=== PATIENT | male | born 1985 | race African-American/Black ===

== ENCOUNTER 2019-01-11 17:01 | Emergency (ER) | payer OTHER, MEDICAID, SELFPAY ==
[2019-01-11 17:13] VITALS: BP 124/61; PULSE 107; RESP 19; TEMP 36.6; O2SAT 94; BMI 46.3
--- NOTE | 2019-01-11 17:18 | DI.RAD.S_ITS ---
PROCEDURE: XR CHEST 1V INDICATIONS: Chest pain TECHNIQUE: One view of the chest was acquired. COMPARISON: None. FINDINGS: Surgical changes and devices: None. Lungs and pleura: An incomplete inspiratory result is noted, causing a crowded appearance to the lung markings. No focal infiltrates are seen. No pneumothorax or significant pleural effusions are seen. Mediastinum: Mediastinal contours appear normal. Heart size is normal. Bones and chest wall: No suspicious bony lesions. Overlying soft tissues appear unremarkable. IMPRESSION: Portable chest within normal limits. Dictated by: Gregor Sharma M.D. on 01/11/2019 at 16:30 Approved by: Gregor Sharma M.D. on 01/11/2019 at 16:31
[2019-01-11 17:40] VITALS: BP 93/68; PULSE 97; RESP 19; O2SAT 99
[2019-01-11 17:51] LABS: Add Manual Diff / Slide Review NO; Basophils Absolute Auto 100 /uL (0-100); Basophils Percent Auto 0.9 % (0-2); Eosinophils Absolute Auto 300 /uL (0-450); Eosinophils Percent Auto 2.7 % (2-4); Hematocrit 43.2 % (41-53); Hemoglobin 13.9 g/dL (13.5-17.5); Lymphocytes Absolute Auto 2100 /uL (1100-4500); Lymphocytes Percent Auto 19.4 % (25-40); Mean Corpuscular HGB Conc 32.2 % (30-36); Mean Corpuscular Hemoglobin 25.9 PG (26-34); Mean Corpuscular Volume 80.3 fL (80-100); Monocytes Absolute Auto 900 /uL (0-900); Monocytes Percent Auto 7.9 % (3-14); Neutrophils Absolute Auto 7600 /uL (1500-7000); Neutrophils Percent Auto 69.1 % (50-75); Platelet Count 319 X10^3/uL (150-400); Red Blood Cell Count 5.38 X10^6/uL (4.5-5.9); Red Cell Distribution Width 16.1 % (11.6-14.8)
[2019-01-11 17:55] LABS: Alanine Aminotransferase 28 IU/L (21-72); Albumin 4.1 g/dL (3.5-5.0); Albumin Globulin Ratio 1.1 (1.0-2.8); Alkaline Phosphatase 82 U/L (38-126); Aspartate Aminotransferase 23 IU/L (17-59); Bilirubin Total 0.5 mg/dL (0.2-1.3); Blood Urea Nitrogen 11 mg/dL (9-20); Calcium 9.4 mg/dL (8.4-10.2); Carbon Dioxide 26 mmol/L (22-32); Chloride 103 mmol/L (98-107); Creatine Kinase 103 U/L (55-170); Estimated Glomerular Filt Rate > 60.0 mL/min (>60); Globulin 3.7 g/dL (1.7-4.1); Glucose 100 mg/dL (70-100); HEMOLYSIS < 15 (0-50); Lipase 68 U/L (23-300); Potassium 3.6 mmol/L (3.4-5.1); Sodium 140 mmol/L (137-145); Total Protein 7.8 g/dL (6.3-8.2)
--- NOTE | 2019-01-11 18:05 | ED_ITS ---
HPI - Chest Pain General Chief Complaint: Chest Pain Stated Complaint: chest/abdominal pain Time Seen by Provider: 01/11/19 17:59 Source: patient Mode of arrival: ambulatory Limitations: no limitations History of Present Illness HPI narrative: Patient is a 33-year-old male here for evaluation of chest discomfort. Patient states that he has had the discomfort off and on for some time now. He states he thought that it was heartburn. He has seen another provider within the past couple days and was told that he probably had an ulcer. He was started on a medication after he described it does sound like Carafate. He states that he is feeling weak at work. No shortness of breath. No family history of early cardiac disease. Symptoms do seem to be associated with eating. He states that it is certain types of foods that make the symptoms worse. No blood in his stool. Not vomiting blood. Related Data Home Medications Medication Instructions Recorded Confirmed sucralfate 1 g PO QID 01/11/19 01/11/19 Previous Rx's Medication Instructions Recorded ranitidine HCl [Zantac] 150 mg PO BID #60 tab 01/11/19 Allergies Allergy/AdvReac Type Severity Reaction Status Date / Time No Known Drug Allergies Allergy Verified 01/11/19 17:17 Review of Systems Constitutional Denies fever(s) and Denies headache(s) ENT Ears, Nose, Mouth, and Throat: Denies headache(s) Cardiovascular Reports chest pain and Denies dyspnea Respiratory Denies dyspnea Gastrointestinal Gastrointestinal: Reports abdominal pain (Epigastric), Reports belching, Reports bloating, Denies change in stool character, Reports dyspepsia, Denies nausea and Denies vomiting Genitourinary Denies dysuria Musculoskeletal Denies myalgias and Denies arthralgias Integumentary/Breasts Denies rash Neurologic Denies headache(s) Hematologic/Lymphatic Denies easy bleeding and Denies easy bruising [facility] Medical History Patient denies medical problems (Acute) Social History Smoking Status: Never smoker Social History Smoking Status: Never smoker Exam Initial Vital Signs Initial Vital Signs: Vital Signs Temperature 97.9 F 01/11/19 17:13 Pulse Rate 107 H 01/11/19 17:13 Respiratory Rate 19 01/11/19 17:13 Blood Pressure 124/61 01/11/19 17:13 Pulse Oximetry 94 01/11/19 17:13 Const General: cooperative, healthy appearing, comfortable, well developed, well groomed and No acute distress Orientation: alert, awake and oriented x3 HENMT Head: normal to inspection and normocephalic Resp Effort & Inspection: normal respiratory effort Auscultation: clear to auscultation bilaterally Cardio Rate: regular rate Rhythm: regular rhythm GI Inspection: non-distended Palpation: soft, No firm and tender (Epigastric) Skin Lesions: no lesions Rashes: no rashes Neuro General: alert and awake Cognition: normal cognition Speech: speech normal Extrem General: normal to inspection and capillary refill normal Scores HEART Score Heart Score history: Slightly Suspicious Heart Score EKG: Non-Specific repolarization disturbance Heart Score Age: < 45 years old Heart Score risk factors: No known risk factors Heart Score troponin: < or = to normal limit Heart Score Total: 1 Course Orders Ordered: ED Orders 01/11/19 17:18 XR chest 1V Stat EKG-12 Lead Stat 01/11/19 17:28 Complete Blood Count AUTO DIFF Stat Comprehensive Metabolic Panel Stat Lipase Stat Troponin & CK Cardiac Panel Stat Vital Signs - 8 hr 01/11/19 17:13 01/11/19 17:40 Temperature 97.9 F Pulse Rate 107 H 97 H Respiratory Rate 19 19 Blood Pressure 124/61 Blood Pressure [Right Arm] 93/68 Pulse Oximetry 94 99 MDM - Chest Pain Lab Data Attestation: I reviewed the patient's lab results. Result diagrams: 01/11/19 17:28 01/11/19 17:28 Lab Results 01/11/19 01/11/19 Range/Units 17:28 17:28 WBC 11.0 (4.5-11.0) X10^3/uL RBC 5.38 (4.5-5.9) X10^6/uL Hgb 13.9 (13.5-17.5) g/dL Hct 43.2 (41-53) % MCV 80.3 (80-100) fL MCH 25.9 L (26-34) PG MCHC 32.2 (30-36) % RDW 16.1 H (11.6-14.8) % Plt Count 319 (150-400) X10^3/uL Neut % (Auto) 69.1 (50-75) % Lymph % (Auto) 19.4 L (25-40) % [place] % (Auto) 7.9 (3-14) % Eos % (Auto) 2.7 (2-4) % Baso % (Auto) 0.9 (0-2) % Neut # (Auto) 7600 H (8424-5196) /uL Lymph # (Auto) 2100 (3763-2066) /uL [place] # (Auto) 900 (0-900) /uL Eos # (Auto) 300 (0-450) /uL Baso # (Auto) 100 (0-100) /uL Sodium 140 (137-145) mmol/L Potassium 3.6 (3.4-5.1) mmol/L Chloride 103 (98-107) mmol/L Carbon Dioxide 26 (22-32) mmol/L BUN 11 (9-20) mg/dL Creatinine 1.00 (0.66-1.25) mg/dL Estimated GFR > 60.0 (>60) mL/min BUN/Creatinine Ratio 11.0 (6-22) Glucose 100 (70-100) mg/dL Calcium 9.4 (8.4-10.2) mg/dL Total Bilirubin 0.5 (0.2-1.3) mg/dL AST 23 (17-59) IU/L ALT 28 (21-72) IU/L Alkaline Phosphatase 82 (38-126) U/L Total Creatine Kinase 103 (55-170) U/L CK-MB (CK-2) 0.40 (<2.37) ng/mL CK-MB (CK-2) Rel Index 0.4 L (1.5-5.0) % Troponin I < 0.012 (0.01-0.034) ng/mL Total Protein 7.8 (6.3-8.2) g/dL Albumin 4.1 (3.5-5.0) g/dL Globulin 3.7 (1.7-4.1) g/dL Albumin/Globulin Ratio 1.1 (1.0-2.8) Lipase 68 (23-300) U/L Imaging Data Chest x-ray: Radiologist's impression: [address] [place] [address] XRay Report Signed Patient: Moody Moran CMR#: [id number] : 1985Acct:[id number] Age/Sex: te of Service: 01/11/19 Loc: ED Accession Number: [id number] Procedure: XR chest 1V Ordering Provider: Luz Elena Rich D.O. PROCEDURE: XR CHEST 1V INDICATIONS: Chest pain TECHNIQUE: One view of the chest was acquired. COMPARISON: None. FINDINGS: Surgical changes and devices: None. Lungs and pleura: An incomplete inspiratory result is noted, causing a crowded appearance to the lung markings. No focal infiltrates are seen. No pneumothorax or significant pleural effusions are seen. Mediastinum: Mediastinal contours appear normal. Heart size is normal. Bones and chest wall: No suspicious bony lesions. Overlying soft tissues appea r unremarkable. IMPRESSION: Portable chest within normal limits. Dictated by: Gregor Sharma M.D. on 01/11/2019 at 16:30 Approved by: Gregor Sharma M.D. on 01/11/2019 at 16:31 ECG Data Attestation: I personally reviewed and interpreted this ECG as follows: Prior ECG tracings: not available for review Interpretation: Sinus tachycardia Ventricular rate of 100 Normal axis Normal QRS Normal QTC Nonspecific ST T wave changes MDM Narrative Medical decision making narrative: Patient's history and physical exam is most consistent with reflux disease. He is currently on Carafate. We discussed the continued use of this. Will start him on Zantac. We did discuss coronary rupal ry disease however I feel that the patient is low risk for this given his history and physical. Patient is also low risk for pulmonary embolism. No indication for admission to the hospital. No indication for CT scan. Patient was given phone number to help with the staff showing a primary provider. We discussed diet modifications. He expressed understanding and agreement with plan. Discharge Plan Departure Patient Disposition: Home Clinical Impression: Atypical chest pain Gastroesophageal reflux disease Qualifiers: Esophagitis presence: esophagitis presence not specified Qualified Code(s): K21.9 - Gastro-esophageal reflux disease without esophagitis Discharge Date/Time: 01/11/19 18:56 Interventions: ED Discharge Assessment Last Done: 01/11/19 18:55 Instructions: DI for Gastroesophageal Reflux Disease (GERD), DI for Atypical Chest Pain Activity Restrictions/Additional Instructions: Recommend that you call [phone] to help establish a primary care provider. Recommend that you continue your current medication and start the new medication as directed. Return to the ER for any new or worsening symptoms. Prescriptions: New ranitidine HCl [Zantac] 150 mg tablet 150 mg PO BID Qty: 60 RF: 0 No Action sucralfate 1 gram tablet 1 g PO QID RF: 0 Stand Alone Forms: Work Release Note
[2019-01-11 18:07] LABS: Troponin I < 0.012 ng/mL (0.01-0.034)
[2019-01-11 18:11] LABS: CKMB % Relative Index 0.4 % (1.5-5.0)
[2019-01-11 18:24] VITALS: BP 115/67; PULSE 94; RESP 21; O2SAT 98
== END 2019-01-11 18:56 | disposition home or self-care (01) ==
PROVIDERS: Emergency Medicine; Emergency Provider Emergency Medicine
DX: R07.89 Other chest pain (principal); K21.9 Gastro-esophageal reflux disease without esophagitis; R00.0 Tachycardia, unspecified
CPT/HCPCS: 36591; 71045; 80053; 82550; 82553; 83690; 84484; 85025; 93005; 99283; 99285

== ENCOUNTER 2019-02-01 07:28 | Emergency (ER) | payer OTHER, MEDICAID, SELFPAY ==
--- NOTE | 2019-02-01 07:33 | DI.RAD.S_ITS ---
PROCEDURE: XR CHEST 1V INDICATIONS: Chest pain TECHNIQUE: One view of the chest was acquired. COMPARISON: [facility], CR, XR CHEST 1V, 01/11/2019, 17:25. FINDINGS: Surgical changes and devices: None. Lungs and pleura: Lungs are clear. No pleural effusions or pneumothorax. Mediastinum: Mediastinal contours appear normal. Heart size is normal. Bones and chest wall: No suspicious bony lesions. Overlying soft tissues appear unremarkable. IMPRESSION: Stable chest. No acute cardiopulmonary process is evident. Dictated by: Osmar Andrade M.D. on 02/01/2019 at 8:13 Approved by: Osmar Andrade M.D. on 02/01/2019 at 8:13
[2019-02-01 07:37] VITALS: BP 127/62; PULSE 69; RESP 18; TEMP 36.8; O2SAT 100; BMI 43.6
--- NOTE | 2019-02-01 07:57 | ED.CHESTPAIN ---
HPI - Chest Pain <DO Christopher Jones Last Filed: 02/07/19 07:05> General Chief Complaint: Chest Pain Stated Complaint: chest pain Time Seen by Provider: 02/01/19 07:32 Source: patient Mode of arrival: ambulatory Limitations: no limitations History of Present Illness HPI narrative: Patient is a 33-year-old male who I evaluated in this emergency department the past for chest pain. During his last visit where I evaluated him his symptoms seemed to be more GI related rather than cardiac. When I saw him last he had already been given a prescription for Carafate. I added a prescription of Zantac. He states since that time he has continued to have symptoms. He states that he has not been taking the Carafate because he had a ?reaction? to this medication where he was seen by another provider who told him to stop taking it. He states that he has been taking the Zantac which has improved the symptoms at night but he still continues to have epigastric and right upper quadrant pain. Describes no new symptoms compared with his last visit here in the emergency department. Related Data Home Medications Medication Instructions Recorded Confirmed sucralfate 1 g PO QID 01/11/19 01/11/19 Previous Rx's Medication Instructions Recorded ranitidine HCl [Zantac] 150 mg PO BID #60 tab 01/11/19 famotidine [Pepcid] 40 mg PO DAILY #30 tab 02/01/19 Allergies Allergy/AdvReac Type Severity Reaction Status Date / Time No Known Drug Allergies Allergy Verified 02/01/19 07:37 Review of Systems <DO Christopher Jones Last Filed: 02/07/19 07:05> Constitutional Denies fever(s) and Denies headache(s) ENT Ears, Nose, Mouth, and Throat: Denies headache(s) Cardiovascular Reports chest pain (Patient describes chest pain upon triage however is epigastric and RUQ), Denies irregular heart rhythm and Denies dyspnea Respiratory Denies cough and Denies dyspnea Gastrointestinal Gastrointestinal: Reports abdominal pain, Denies change in stool character, Denies nausea and Denies vomiting Musculoskeletal Denies myalgias and Denies arthralgias Integumentary/Breasts Denies rash Neurologic Denies headache(s) Hematologic/Lymphatic Denies easy bleeding and Denies easy bruising PFSH <DO Christopher Jones Last Filed: 02/07/19 07:05> Medical History Patient denies medical problems (Acute) Social History Smoking Status: Never smoker Social History Smoking Status: Never smoker Exam <DO Christopher Jones Last Filed: 02/07/19 07:05> Initial Vital Signs Initial Vital Signs: Vital Signs Temperature 98.2 F 02/01/19 07:37 Pulse Rate 69 02/01/19 07:37 Respiratory Rate 18 02/01/19 07:37 Blood Pressure 127/62 02/01/19 07:37 Pulse Oximetry 100 02/01/19 07:37 Const General: cooperative, well developed, well groomed and No acute distress Orientation: alert, awake and oriented x3 HENMT Head: normal to inspection and normocephalic Resp Effort & Inspection: normal respiratory effort Auscultation: clear to auscultation bilaterally Cardio Rate: regular rate Rhythm: regular rhythm Pulses: radial pulses present GI Inspection: non-distended Palpation: soft, No firm and tender (Right upper quadrant) Back/Spine/Pelvis Back: No CVA tenderness Skin Lesions: no lesions Rashes: no rashes Neuro General: alert and awake Cognition: normal cognition Speech: speech normal Sensory Exam: no sensory deficits noted Extrem General: normal to inspection and capillary refill normal Psych Appearance: grossly normal and well kempt <DO Christopher Cristobal Last Filed: 02/01/19 10:00> Initial Vital Signs Initial Vital Signs: Vital Signs Temperature 98.2 F 02/01/19 07:37 Pulse Rate 69 02/01/19 07:37 Respiratory Rate 18 02/01/19 07:37 Blood Pressure 127/62 02/01/19 07:37 Pulse Oximetry 100 02/01/19 07:37 <Luz Elena Rich DO - Last Filed: 02/01/19 10:00> HEART Score Heart Score history: Slightly Suspicious Heart Score EKG: Normal Heart Score Age: < 45 years old Heart Score risk factors: No known risk factors Heart Score troponin: < or = to normal limit Heart Score Total: 0 PERC Score Age greater than or equal to 50 years: No Heart rate greater than or equal to 100 bpm: No Room Air O2 Sat less than 95%: No Unilateral leg swelling: No Recent trauma or surgery: No Hemoptysis: No Prior PE or DVT: No Hormone Use: No Total PERC Score: 0 Course <Huy Bragg DO - Last Filed: 02/07/19 07:05> Orders Ordered: Discontinued Medications Al Hydrox/Mg Hydrox/Simethicone 20 ml/ Lidocaine HCl 15 ml 0 ml PO NOW ONE Stop: 02/01/19 07:37 Last Admin: 02/01/19 08:40 Dose: 35 ml Pantoprazole Sodium (Protonix) 40 mg IV NOW ONE Stop: 02/01/19 07:37 Last Admin: 02/01/19 08:41 Dose: 40 mg Vital Signs - 8 hr 02/01/19 07:37 02/01/19 08:00 02/01/19 09:30 Temperature 98.2 F 98.2 F Pulse Rate 69 83 79 Respiratory Rate 18 22 13 Blood Pressure 127/62 Blood Pressure [Left Arm] 127/62 104/67 Pulse Oximetry 100 100 100 <Luz Elena Rich DO - Last Filed: 02/01/19 10:00> Orders Ordered: Discontinued Medications Al Hydrox/Mg Hydrox/Simethicone 20 ml/ Lidocaine HCl 15 ml 0 ml PO NOW ONE Stop: 02/01/19 07:37 Last Admin: 02/01/19 08:40 Dose: 35 ml Pantoprazole Sodium (Protonix) 40 mg IV NOW ONE Stop: 02/01/19 07:37 Last Admin: 02/01/19 08:41 Dose: 40 mg Vital Signs - 8 hr 02/01/19 07:37 02/01/19 08:00 02/01/19 09:30 Temperature 98.2 F 98.2 F Pulse Rate 69 83 79 Respiratory Rate 18 22 13 Blood Pressure 127/62 Blood Pressure [Left Arm] 127/62 104/67 Pulse Oximetry 100 100 100 MDM - Chest Pain <DO Christopher Jones Last Filed: 02/07/19 07:05> Lab Data Result diagrams: 02/01/19 07:50 02/01/19 08:42 Lab Results 02/01/19 02/01/19 Range/Units 07:50 08:42 WBC 8.1 (4.5-11.0) X10^3/uL RBC 5.53 (4.5-5.9) X10^6/uL Hgb 14.4 (13.5-17.5) g/dL Hct 44.7 (41-53) % MCV 80.8 (80-100) fL MCH 26.1 (26-34) PG MCHC 32.3 (30-36) % RDW 16.5 H (11.6-14.8) % Plt Count 297 (150-400) X10^3/uL Neut % (Auto) 61.2 (50-75) % Lymph % (Auto) 26.4 (25-40) % [place] % (Auto) 7.4 (3-14) % Eos % (Auto) 4.2 H (2-4) % Baso % (Auto) 0.8 (0-2) % Neut # (Auto) 5000 (2960-9160) /uL Lymph # (Auto) 2200 (2955-3281) /uL [place] # (Auto) 600 (0-900) /uL Eos # (Auto) 300 (0-450) /uL Baso # (Auto) 100 (0-100) /uL Sodium 142 (137-145) mmol/L Potassium 4.1 (3.4-5.1) mmol/L Chloride 104 (98-107) mmol/L Carbon Dioxide 28 (22-32) mmol/L BUN 11 (9-20) mg/dL Creatinine 1.00 (0.66-1.25) mg/dL Estimated GFR > 60.0 (>60) mL/min BUN/Creatinine Ratio 11.0 (6-22) Glucose 95 (70-100) mg/dL Calcium 9.2 (8.4-10.2) mg/dL Total Bilirubin 0.6 (0.2-1.3) mg/dL AST 23 (17-59) IU/L ALT 23 (21-72) IU/L Alkaline Phosphatase 81 (38-126) U/L Troponin I < 0.012 (0.01-0.034) ng/mL Total Protein 7.9 (6.3-8.2) g/dL Albumin 4.1 (3.5-5.0) g/dL Globulin 3.8 (1.7-4.1) g/dL Albumin/Globulin Ratio 1.1 (1.0-2.8) Lipase 58 (23-300) U/L ECG Data Attestation: I personally reviewed and interpreted this ECG as follows: Prior ECG tracings: not available for review Interpretation: Sinus rhythm Ventricular rate is 68 Normal axis Normal QRS Normal QTC Nonspecific ST T wave changes MDM Narrative Medical decision making narrative: Patient symptoms appear to be GI. Low suspicion for cardiovascular pathology. Care turned over they provided change of shift to follow up on labs and ultrasound and chest x-ray results. <Luz Elena Rich, - Last Filed: 02/01/19 10:00> Lab Data Attestation: I reviewed the patient's lab results. Lab Results 02/01/19 02/01/19 Range/Units 07:50 08:42 WBC 8.1 (4.5-11.0) X10^3/uL RBC 5.53 (4.5-5.9) X10^6/uL Hgb 14.4 (13.5-17.5) g/dL Hct 44.7 (41-53) % MCV 80.8 (80-100) fL MCH 26.1 (26-34) PG MCHC 32.3 (30-36) % RDW 16.5 H (11.6-14.8) % Plt Count 297 (150-400) X10^3/uL Neut % (Auto) 61.2 (50-75) % Lymph % (Auto) 26.4 (25-40) % [place] % (Auto) 7.4 (3-14) % Eos % (Auto) 4.2 H (2-4) % Baso % (Auto) 0.8 (0-2) % Neut # (Auto) 5000 (6961-7890) /uL Lymph # (Auto) 2200 (7158-0893) /uL [place] # (Auto) 600 (0-900) /uL Eos # (Auto) 300 (0-450) /uL Baso # (Auto) 100 (0-100) /uL Sodium 142 (137-145) mmol/L Potassium 4.1 (3.4-5.1) mmol/L Chloride 104 (98-107) mmol/L Carbon Dioxide 28 (22-32) mmol/L BUN 11 (9-20) mg/dL Creatinine 1.00 (0.66-1.25) mg/dL Estimated GFR > 60.0 (>60) mL/min BUN/Creatinine Ratio 11.0 (6-22) Glucose 95 (70-100) mg/dL Calcium 9.2 (8.4-10.2) mg/dL Total Bilirubin 0.6 (0.2-1.3) mg/dL AST 23 (17-59) IU/L ALT 23 (21-72) IU/L Alkaline Phosphatase 81 (38-126) U/L Troponin I < 0.012 (0.01-0.034) ng/mL Total Protein 7.9 (6.3-8.2) g/dL Albumin 4.1 (3.5-5.0) g/dL Globulin 3.8 (1.7-4.1) g/dL Albumin/Globulin Ratio 1.1 (1.0-2.8) Lipase 58 (23-300) U/L Imaging Data Chest x-ray: Radiologist's impression: [address] [address] XRay Report Signed Patient: Moody Moran CMR#: [id number] : 1985Acct:[id number] Age/Sex: te of Service: 02/01/19 Loc: ED Accession Number: [id number] Procedure: XR chest 1V Ordering Provider: Huy Bragg D.O. PROCEDURE: XR CHEST 1V INDICATIONS: Chest pain TECHNIQUE: One view of the chest was acquired. COMPARISON: [facility], , XR CHEST 1V, 01/11/2019, 17:25. FINDINGS: Surgical changes and devices: None. Lungs and pleura: Lungs are clear. No pleural effusions or pneumothorax. Mediastinum: Mediastinal contours appear normal. Heart size is normal. Bones and chest wall: No suspicious bony lesions. Overlying soft tissues appear unremarkable. IMPRESSION: Stable chest. No acute cardiopulmonary process is evident. Dictated by: Osmar Andrade M.D. on 02/01/2019 at 8:13 Approved by: Osmar Andrade M.D. on 02/01/2019 at 8:13 US - abdomen: Radiologist's impression: Moellerjuan Fredo 33 M [address] [address] Ultrasound Report Signed Patient: Moody Moran CMR#: [id number] : 1985Acct:[id number] Age/Sex: te of Service: 02/01/19 Loc: ED Accession Number: [id number] Procedure: US abdomen limited Ordering Provider: Huy Bragg D.O. PROCEDURE: US ABDOMEN LIMITED INDICATIONS: RIGHT UPPER QUADRANT PAIN TECHNIQUE: Real-time focused scanning was performed of the abdomen, with image documentation. COMPARISON: None. FINDINGS: The liver is measuring within the upper limits of normal for size at 17.5 cm in length. Diffusely increased echogenicity of the liver is present when compared to the right kidney, which does result in difficulty evaluating the liver for deep liver lesions. No large liver lesions are identified. The gallbladder is normal in size without cholelithiasis or evidence of gallbladder wall inflammation. There is no intrahepatic or extrahepatic biliary dilatation. The common bile duct measures 5 mm in diameter. The pancreas is not well seen related to overlying bowel gas. Imaged portions of the right kidney are unremarkable. The abdominal aorta and inferior vena cava were not imaged. IMPRESSION: 1. No cholelithiasis or evidence of acute cholecystitis. 2. Nonspecific increased echogenicity of the liver most often is seen in the setting of hepatic steatosis. Clinical correlation to exclude other chronic liver diseases is recommended. Dictated by: Osmar Andrade M.D. on 02/01/2019 at 8:14 Approved by: Osmar Andrade M.D. on 02/01/2019 at 8:15 ECG Data Attestation: I personally reviewed and interpreted this ECG as follows: Prior ECG tracings: available for review Interpretation: Patient EKG shows NSR, rate of 68, pr of 155, qts of 88 qtc of 402, nonspecific change. EKG appears similar to prior from 01/11/19. [facility] Narrative Medical decision making narrative: Care transferred to myself. Patient case and prior visit reviewed with Dr. Bragg. History and exam performed by myself. EKG no acute changes, similar to prior. prelim US is negative. labs show no acute change, CBC, CMP, lipase and troponin are negative. Patient chest/epigastric pain has been present for 8 months. Worse with being upright and moving around, better with being flat. Patient states he stopped carafate second to reaction with rawness of his throat and mouth. Pain is epigastric radiates to RUQ and sometimes back. Patient has been on zantac and carafate. Discussed plan to change to PPI and consult with PCP and/or GI for scope. Discussed lab and imaging findings. Given referral for PCP and discussed that patient would benefit from further workup. Also discussed need for return and signs/symptoms to watch for such as shortness of breath, syncope, lightheadedness, changing nature of chest/abdominal pain. Discharge Plan Departure Patient Disposition: Home Clinical Impression: Atypical chest pain Discharge Date/Time: 02/01/19 10:01 Interventions: ED Discharge Assessment Last Done: 02/01/19 10:01 Instructions: DI for Nonalcoholic Fatty Liver Disease Activity Restrictions/Additional Instructions: Follow up with primary care in the next week for recheck and to get referral/evaluation for possible EGD. Call [phone] to find a provider. Your imaging shows changes to your liver that are likely MATSON or non-alcoholic fatty liver, discuss with your primary care provider how to monitor this. Stop zantac and start pepcid 40mg daily for the next 4 weeks. Your prescription was sent to [facility] in [place]. Return to the emergency department for fevers greater than 100.4 F, new chest pain, shortness of breath, passing out, lightheadedness, persistent vomiting, black or bloody stools or other new or concerning symptoms. Prescriptions: New famotidine [Pepcid] 40 mg tablet 40 mg PO DAILY Qty: 30 RF: 0 No Action sucralfate 1 gram tablet 1 g PO QID RF: 0 ranitidine HCl [Zantac] 150 mg tablet 150 mg PO BID Qty: 60 RF: 0 Stand Alone Forms: Work Release Note
[2019-02-01 08:00] VITALS: BP 127/62; PULSE 83; RESP 22; TEMP 36.8; O2SAT 100
--- NOTE | 2019-02-01 08:00 | ED_ITS ---
HPI - Chest Pain <DO Christopher Jones Last Filed: 02/07/19 07:05> General Chief Complaint: Chest Pain Stated Complaint: chest pain Time Seen by Provider: 02/01/19 07:32 Source: patient Mode of arrival: ambulatory Limitations: no limitations History of Present Illness HPI narrative: Patient is a 33-year-old male who I evaluated in this emergency department the past for chest pain. During his last visit where I evaluated him his symptoms seemed to be more GI related rather than cardiac. When I saw him last he had already been given a prescription for Carafate. I added a prescription of Zantac. He states since that time he has continued to have symptoms. He states that he has not been taking the Carafate because he had a ?reaction? to this medication where he was seen by another provider who told him to stop taking it. He states that he has been taking the Zantac which has im proved the symptoms at night but he still continues to have epigastric and right upper quadrant pain. Describes no new symptoms compared with his last visit here in the emergency department. Related Data Home Medications Medication Instructions Recorded Confirmed sucralfate 1 g PO QID 01/11/19 01/11/19 Previous Rx's Medication Instructions Recorded ranitidine HCl [Zantac] 150 mg PO BID #60 tab 01/11/19 famotidine [Pepcid] 40 mg PO DAILY #30 tab 02/01/19 Allergies Allergy/AdvReac Type Severity Reaction Status Date / Time No Known Drug Allergies Allergy Verified 02/01/19 07:37 Review of Systems <DO Christopher Jones Last Filed: 02/07/19 07:05> Constitutional Denies fever(s) and Denies headache(s) ENT Ears, Nose, Mouth, and Throat: Denies headache(s) Cardiovascular Reports chest pain (Patient describes chest pain upon triage however is epigastric and RUQ), Denies irregular heart rhythm and Denies dyspnea Respiratory Denies cough and Denies dyspnea Gastrointestinal Gastrointestinal: Reports abdominal pain, Denies change in stool character, Denies nausea and Denies vomiting Musculoskeletal Denies myalgias and Denies arthralgias Integumentary/Breasts Denies rash Neurologic Denies headache(s) Hematologic/Lymphatic Denies easy bleeding and Denies easy bruising PFSH <DO Christopher Jones Last Filed: 02/07/19 07:05> Medical History Patient denies medical problems (Acute) Social History Smoking Status: Never smoker Social History Smoking Status: Never smoker Exam <DO Christopher Jones Last Filed: 02/07/19 07:05> Initial Vital Signs Initial Vital Signs: Vital Signs Temperature 98.2 F 02/01/19 07:37 Pulse Rate 69 02/01/19 07:37 Respiratory Rate 18 02/01/19 07:37 Blood Pressure 127/62 02/01/19 07:37 Pulse Oximetry 100 02/01/19 07:37 Const General: cooperative, well developed, well groomed and No acute distress Orientation: alert, awake and oriented x3 HENMT Head: normal to inspection and normocephalic Resp Effort & Inspection: normal respiratory effort Auscultation: clear to auscultation bilaterally Cardio Rate: regular rate Rhythm: regular rhythm Pulses: radial pulses present GI Inspection: non-distended Palpation: soft, No firm and tender (Right upper quadrant) Back/Spine/Pelvis Back: No CVA tenderness Skin Lesions: no lesions Rashes: no rashes Neuro General: alert and awake Cognition: normal cognition Speech: speech normal Sensory Exam: no sensory deficits noted Extrem General: normal to inspection and capillary refill normal Psych Appearance: grossly normal and well kempt <DO Christopher Cristobal Last Filed: 02/01/19 10:00> Initial Vital Signs Initial Vital Signs: Vital Signs Temperature 98.2 F 02/01/19 07:37 Pulse Rate 69 02/01/19 07:37 Respiratory Rate 18 02/01/19 07:37 Blood Pressure 127/62 02/01/19 07:37 Pulse Oximetry 100 02/01/19 07:37 <DO Christopher Cristobal Last Filed: 02/01/19 10:00> HEART Score Heart Score history: Slightly Suspicious Heart Score EKG: Normal Heart Score Age: < 45 years old Heart Score risk factors: No known risk factors Heart Score troponin: < or = to normal limit Heart Score Total: 0 PERC Score Age greater than or equal to 50 years: No Heart rate greater than or equal to 100 bpm: No Room Air O2 Sat less than 95%: No Unilateral leg swelling: No Recent trauma or surgery: No Hemoptysis: No Prior PE or DVT: No Hormone Use: No Total PERC Score: 0 Course <Huy Bragg DO - Last Filed: 02/07/19 07:05> Orders Ordered: Discontinued Medications Al Hydrox/Mg Hydrox/Simethicone 20 ml/ Lidocaine HCl 15 ml 0 ml PO NOW ONE Stop: 02/01/19 07:37 Last Admin: 02/01/19 08:40 Dose: 35 ml Pantoprazole Sodium (Protonix) 40 mg IV NOW ONE Stop: 02/01/19 07:37 Last Admin: 02/01/19 08:41 Dose: 40 mg Vital Signs - 8 hr 02/01/19 07:37 02/01/19 08:00 02/01/19 09:30 Temperature 98.2 F 98.2 F Pulse Rate 69 83 79 Respiratory Rate 18 22 13 Blood Pressure 127/62 Blood Pressure [Left Arm] 127/62 104/67 Pulse Oximetry 100 100 100 <Luz Elena Rich DO - Last Filed: 02/01/19 10:00> Orders Ordered: Discontinued Medications Al Hydrox/Mg Hydrox/Simethicone 20 ml/ Lidocaine HCl 15 ml 0 ml PO NOW ONE Stop: 02/01/19 07:37 Last Admin: 02/01/19 08:40 Dose: 35 ml Pantoprazole Sodium (Protonix) 40 mg IV NOW ONE Stop: 02/01/19 07:37 Last Admin: 02/01/19 08:41 Dose: 40 mg Vital Signs - 8 hr 02/01/19 07:37 02/01/19 08:00 02/01/19 09:30 Temperature 98.2 F 98.2 F Pulse Rate 69 83 79 Respiratory Rate 18 22 13 Blood Pressure 127/62 Blood Pressure [Left Arm] 127/62 104/67 Pulse Oximetry 100 100 100 MDM - Chest Pain <Huy Bragg DO - Last Filed: 02/07/19 07:05> Lab Data Result diagrams: 02/01/19 07:50 02/01/19 08:42 Lab Results 02/01/19 02/01/19 Range/Units 07:50 08:42 WBC 8.1 (4.5-11.0) X10^3/uL RBC 5.53 (4.5-5.9) X10^6/uL Hgb 14.4 (13.5-17.5) g/dL Hct 44.7 (41-53) % MCV 80.8 (80-100) fL MCH 26.1 (26-34) PG MCHC 32.3 (30-36) % RDW 16.5 H (11.6-14.8) % Plt Count 297 (150-400) X10^3/uL Neut % (Auto) 61.2 (50-75) % Lymph % (Auto) 26.4 (25-40) % Holmes % (Auto) 7.4 (3-14) % Eos % (Auto) 4.2 H (2-4) % Baso % (Auto) 0.8 (0-2) % Neut # (Auto) 5000 (8874-5143) /uL Lymph # (Auto) 2200 (5476-5639) /uL Holmes # (Auto) 600 (0-900) /uL Eos # (Auto) 300 (0-450) /uL Baso # (Auto) 100 (0-100) /uL Sodium 142 (137-145) mmol/L Potassium 4.1 (3.4-5.1) mmol/L Chloride 104 (98-107) mmol/L Carbon Dioxide 28 (22-32) mmol/L BUN 11 (9-20) mg/dL Creatinine 1.00 (0.66-1.25) mg/dL Estimated GFR > 60.0 (>60) mL/min BUN/Creatinine Ratio 11.0 (6-22) Glucose 95 (70-100) mg/dL Calcium 9.2 (8.4-10.2) mg/dL Total Bilirubin 0.6 (0.2-1.3) mg/dL AST 23 (17-59) IU/L ALT 23 (21-72) IU/L Alkaline Phosphatase 81 (38-126) U/L Troponin I < 0.012 (0.01-0.034) ng/mL Total Protein 7.9 (6.3-8.2) g/dL Albumin 4.1 (3.5-5.0) g/dL Globulin 3.8 (1.7-4.1) g/dL Albumin/Globulin Ratio 1.1 (1.0-2.8) Lipase 58 (23-300) U/L ECG Data Attestation: I personally reviewed and interpreted this ECG as follows: Prior ECG tracings: not available for review Interpretation: Sinus rhythm Ventricular rate is 68 Normal axis Normal QRS Normal QTC Nonspecific ST T wave changes MDM Narrative Medical decision making narrative: Patient symptoms appear to be GI. Low suspicion for cardiovascular pathology. Care turned over they provided change of shift to follow up on labs and ultrasound and chest x-ray results. <Luz Elena Rich, - Last Filed: 02/01/19 10:00> Lab Data Attestation: I reviewed the patient's lab results. Lab Results 02/01/19 02/01/19 Range/Units 07:50 08:42 WBC 8.1 (4.5-11.0) X10^3/uL RBC 5.53 (4.5-5.9) X10^6/uL Hgb 14.4 (13.5-17.5) g/dL Hct 44.7 (41-53) % MCV 80.8 (80-100) fL MCH 26.1 (26-34) PG MCHC 32.3 (30-36) % RDW 16.5 H (11.6-14.8) % Plt Count 297 (150-400) X10^3/uL Neut % (Auto) 61.2 (50-75) % Lymph % (Auto) 26.4 (25-40) % Holmes % (Auto) 7.4 (3-14) % Eos % (Auto) 4.2 H (2-4) % Baso % (Auto) 0.8 (0-2) % Neut # (Auto) 5000 (7342-6440) /uL Lymph # (Auto) 2200 (3446-2603) /uL Holmes # (Auto) 600 (0-900) /uL Eos # (Auto) 300 (0-450) /uL Baso # (Auto) 100 (0-100) /uL Sodium 142 (137-145) mmol/L Potassium 4.1 (3.4-5.1) mmol/L Chloride 104 (98-107) mmol/L Carbon Dioxide 28 (22-32) mmol/L BUN 11 (9-20) mg/dL Creatinine 1.00 (0.66-1.25) mg/dL Estimated GFR > 60.0 (>60) mL/min BUN/Creatinine Ratio 11.0 (6-22) Glucose 95 (70-100) mg/dL Calcium 9.2 (8.4-10.2) mg/dL Total Bilirubin 0.6 (0.2-1.3) mg/dL AST 23 (17-59) IU/L ALT 23 (21-72) IU/L Alkaline Phosphatase 81 (38-126) U/L Troponin I < 0.012 (0.01-0.034) ng/mL Total Protein 7.9 (6.3-8.2) g/dL Albumin 4.1 (3.5-5.0) g/dL Globulin 3.8 (1.7-4.1) g/dL Albumin/Globulin Ratio 1.1 (1.0-2.8) Lipase 58 (23-300) U/L Imaging Data Chest x-ray: Radiologist's impression: [address] [address] XRay Report Signed Patient: Moody Moran CMR#: [id number] : 1985Acct:[id number] Age/Sex: te of Service: 02/01/19 Loc: ED Accession Number: [id number] Procedure: XR chest 1V Ordering Provider: Huy Bragg D.O. PROCEDURE: XR CHEST 1V INDICATIONS: Chest pain TECHNIQUE: One view of the chest was acquired. COMPARISON: [facility], , XR CHEST 1V, 01/11/2019, 17:25. FINDINGS: Surgical changes and devices: None. Lungs and pleura: Lungs are clear. No pleural effusions or pneumothorax. Mediastinum: Mediastinal contours appear normal. Heart size is normal. Bones and chest wall: No suspicious bony lesions. Overlying soft tissues appear unremarkable. IMPRESSION: Stable chest. No acute cardiopulmonary process is evident. Dictated by: Osmar Andrade M.D. on 02/01/2019 at 8:13 Approved by: Osmar Andrade M.D. on 02/01/2019 at 8:13 US - abdomen: Radiologist's impression: Moody Moran Fredo 33 M 1985 [address] [address] Ultrasound Report Signed Patient: Moody Moran CMR#: [id number] : 1985Acct:[id number] Age/Sex: te of Service: 02/01/19 Loc: ED Accession Number: [id number] Procedure: US abdomen limited Ordering Provider: Huy Bragg D.O. PROCEDURE: US ABDOMEN LIMITED INDICATIONS: RIGHT UPPER QUADRANT PAIN TECHNIQUE: Real-time focused scanning was performed of the abdomen, with image documentation. COMPARISON: None. FINDINGS: The liver is measuring within the upper limits of normal for size at 17.5 cm in length. Diffusely increased echogenicity of the liver is present when compared to the right kidney, which does result in difficulty evaluating the liver for deep liver lesions. No large liver lesions are identified. The gallbladder is normal in size without cholelithiasis or evidence of gallbladder wall inflammation. There is no intrahepatic or extrahepatic biliary dilatation. The common bile duct measures 5 mm in diameter. The pancreas is not well seen related to overlying bowel gas. Imaged portions of the right kidney are unremarkable. The abdominal aorta and inferior vena c antonella were not imaged. IMPRESSION: 1. No cholelithiasis or evidence of acute cholecystitis. 2. Nonspecific increased echogenicity of the liver most often is seen in the setting of hepatic steatosis. Clinical correlation to exclude other chronic liver diseases is recommended. Dictated by: Osmar Andrade M.D. on 02/01/2019 at 8:14 Approved by: Osmar Andrade M.D. on 02/01/2019 at 8:15 ECG Data Attestation: I personally reviewed and interpreted this ECG as follows: Prior ECG tracings: available for review Interpretation: Patient EKG shows NSR, rate of 68, pr of 155, qts of 88 qtc of 402, nonspecific change. EKG appears similar to prior from 01/11/19. MDM Narrative Medical decision making narrative: Care transferred to myself. Patient case and prior visit reviewed with Dr. Bragg. History and exam performed by myself. EKG no acute changes, similar to prior. prelim US is negative. labs show no acute change, CBC, CMP, lipase and troponin are negative. Patient davin st/epigastric pain has been present for 8 months. Worse with being upright and moving around, better with being flat. Patient states he stopped carafate second to reaction with rawness of his throat and mouth. Pain is epigastric radiates to RUQ and sometimes back. Patient has been on zantac and carafate. Discussed plan to change to PPI and consult with PCP and/or GI for scope. Discussed lab and imaging findings. Given referral for PCP and discussed that patient would benefit from further workup. Also discussed need for return and signs/symptoms to watch for such as shortness of breath, syncope, lightheadedness, changing nature of chest/abdominal pain. Discharge Plan Departure Patient Disposition: Home Clinical Impression: Atypical chest pain Discharge Date/Time: 02/01/19 10:01 Interventions: ED Discharge Assessment Last Done: 02/01/19 10:01 Instructions: DI for Nonalcoholic Fatty Liver Disease Activity Restrictions/Additional Instructions: Follow up with primary care in the next week for recheck and to get referral/evaluation for possible EGD. Call [phone] to find a provider. Your imaging shows changes to your liver that are likely MATSON or non-alcoholic fatty liver, discuss with your primary care provider how to monitor this. Stop zantac and start pepcid 40mg daily for the next 4 weeks. Your prescription was sent to [facility] in [place]. Return to the emergency department for fevers greater than 100.4 F, new chest pain, shortness of breath, passing out, lightheadedness, persistent vomiting, black or bloody stools or other new or concerning symptoms. Prescriptions: New famotidine [Pepcid] 40 mg tablet 40 mg PO DAILY Qty: 30 RF: 0 No Action sucralfate 1 gram tablet 1 g PO QID RF: 0 ranitidine HCl [Zantac] 150 mg tablet 150 mg PO BID Qty: 60 RF: 0 Stand Alone Forms: Work Release Note
[2019-02-01 08:14] LABS: Add Manual Diff / Slide Review NO; Basophils Absolute Auto 100 /uL (0-100); Basophils Percent Auto 0.8 % (0-2); Eosinophils Absolute Auto 300 /uL (0-450); Eosinophils Percent Auto 4.2 % (2-4); Hematocrit 44.7 % (41-53); Hemoglobin 14.4 g/dL (13.5-17.5); Lymphocytes Absolute Auto 2200 /uL (1100-4500); Lymphocytes Percent Auto 26.4 % (25-40); Mean Corpuscular HGB Conc 32.3 % (30-36); Mean Corpuscular Hemoglobin 26.1 PG (26-34); Mean Corpuscular Volume 80.8 fL (80-100); Monocytes Absolute Auto 600 /uL (0-900); Monocytes Percent Auto 7.4 % (3-14); Neutrophils Absolute Auto 5000 /uL (1500-7000); Neutrophils Percent Auto 61.2 % (50-75); Platelet Count 297 X10^3/uL (150-400); Red Blood Cell Count 5.53 X10^6/uL (4.5-5.9); Red Cell Distribution Width 16.5 % (11.6-14.8); White Blood Cell Count 8.1 X10^3/uL (4.5-11.0)
--- NOTE | 2019-02-01 08:27 | DI.US.S_ITS ---
PROCEDURE: US ABDOMEN LIMITED INDICATIONS: RIGHT UPPER QUADRANT PAIN TECHNIQUE: Real-time focused scanning was performed of the abdomen, with image documentation. COMPARISON: None. FINDINGS: The liver is measuring within the upper limits of normal for size at 17.5 cm in length. Diffusely increased echogenicity of the liver is present when compared to the right kidney, which does result in difficulty evaluating the liver for deep liver lesions. No large liver lesions are identified. The gallbladder is normal in size without cholelithiasis or evidence of gallbladder wall inflammation. There is no intrahepatic or extrahepatic biliary dilatation. The common bile duct measures 5 mm in diameter. The pancreas is not well seen related to overlying bowel gas. Imaged portions of the right kidney are unremarkable. The abdominal aorta and inferior vena cava were not imaged. IMPRESSION: 1. No cholelithiasis or evidence of acute cholecystitis. 2. Nonspecific increased echogenicity of the liver most often is seen in the setting of hepatic steatosis. Clinical correlation to exclude other chronic liver diseases is recommended. Dictated by: Osmar Andrade M.D. on 02/01/2019 at 8:14 Approved by: Osmar Andrade M.D. on 02/01/2019 at 8:15
[2019-02-01] MEDS: MAG HYDROX/ALUMINUM/SIMETH SUS 20 ML, LIDOCAINE VISCOUS 2% 15 ML PO (08:40)
[2019-02-01] MEDS: PANTOPRAZOLE 40 MG VIAL IV (08:41)
--- NOTE | 2019-02-01 08:57 | PC.NURSE ---
Pain assessed prior to medication administration, states pain 5/10.
[2019-02-01 09:03] LABS: Alanine Aminotransferase 23 IU/L (21-72); Albumin 4.1 g/dL (3.5-5.0); Albumin Globulin Ratio 1.1 (1.0-2.8); Alkaline Phosphatase 81 U/L (38-126); Aspartate Aminotransferase 23 IU/L (17-59); Bilirubin Total 0.6 mg/dL (0.2-1.3); Blood Urea Nitrogen 11 mg/dL (9-20); Calcium 9.2 mg/dL (8.4-10.2); Carbon Dioxide 28 mmol/L (22-32); Chloride 104 mmol/L (98-107); Estimated Glomerular Filt Rate > 60.0 mL/min (>60); Globulin 3.8 g/dL (1.7-4.1); Glucose 95 mg/dL (70-100); HEMOLYSIS < 15 (0-50); Lipase 58 U/L (23-300); Potassium 4.1 mmol/L (3.4-5.1); Sodium 142 mmol/L (137-145); Total Protein 7.9 g/dL (6.3-8.2)
[2019-02-01 09:14] LABS: Troponin I < 0.012 ng/mL (0.01-0.034)
[2019-02-01 09:30] VITALS: BP 104/67; PULSE 79; RESP 13; O2SAT 100
== END 2019-02-01 10:01 | disposition home or self-care (01) ==
PROVIDERS: Emergency Medicine; Emergency Provider Emergency Medicine
DX: R07.89 Other chest pain (principal)
CPT/HCPCS: 36415; 36591; 71045; 76705; 80053; 83690; 84484; 85025; 93005; 96374; 99282; 99285; C9113